=== PATIENT | female | born 1990 | race Hispanic/Latino ===

== ENCOUNTER 2018-05-16 07:34 | Outpatient (CLI) | payer OTHER | END 2018-05-16 07:35 | disposition home or self-care (01) | LOC: BICULT 07:34 | PROVIDERS: ATTEND Nurse Practitioner | DX: N63.0 Unspecified lump in unspecified breast (principal) ==

== ENCOUNTER 2018-12-03 09:34 | Inpatient (IN) | payer OTHER ==
[2018-12-03] MEDS: Lactated Ringer's 1,000 ML IV SCH ×2 (10:12→10:52)
[2018-12-03] MEDS ORDERED: Ondansetron PF 4 MG/2 ML Vial IVP PRN ×3 (10:26→19:54)
[2018-12-03] MEDS ORDERED: CEFAZOLIN/Water 2 GM/20 ML SYRINGE SLOW IVP SCH (10:26)
[2018-12-03] MEDS ORDERED: Bicitra 30 ML UDCUP PO SCH (10:30)
[2018-12-03 10:34] VITALS: BMI 37.9
[2018-12-03 10:38] LABS: Hemoglobin 13.6 g/dL (12.0-16.0); Mean Corpuscular HGB CONC 35.4 g/dL (32.0-36.0); Mean Corpuscular Hemoglobin 30.3 pg (27.0-31.0); Mean Corpuscular Volume 85.5 fL (78.0-98.0); Platelet Count 231 thou/uL (130-400); RBC Distribution Width 13.1 % (11.5-14.5); Red Blood Cell (RBC) Count 4.49 mill/uL (4.20-5.40); White Blood Cell (WBC) Count 8.4 thou/uL (4.8-10.8)
[2018-12-03] MEDS ORDERED: CEFAZOLIN 2 GM/50 ML-DEXTROSE 2 GM in Premix Bag 1 BAG IVPB SCH (10:45)
[2018-12-03 11:16] LABS: Hep B Surf Ag Non-Reactive S/CO (NonReactive); Syphilis Antibody Nonreactive (Nonreactive); Syphilis Antibody Index 0.03 S/CO (<1.00 Non-Reactive)
[2018-12-03] MEDS ORDERED: ePHEDrine/0.9% NaCl/PF SYRINGE 50 mg/10 ml ONE ×2 (12:11→15:12)
[2018-12-03] MEDS ORDERED: Morphine PF 1 MG/ML SYR ONE (12:11)
[2018-12-03] MEDS ORDERED: Ondansetron PF 4 MG/2 ML Vial ONE ×2 (12:11→15:12)
[2018-12-03] MEDS ORDERED: Oxytocin 10 UNITS/ML VIAL ONE ×2 (12:11→13:34)
[2018-12-03] MEDS ORDERED: Fentanyl 100 MCG/2 ML VIAL ONE (12:11)
[2018-12-03] MEDS ORDERED: Ketorolac Tromethamine 30 MG/ML VIAL ONE ×2 (12:11→15:12)
[2018-12-03] MEDS ORDERED: PHENYLEPHRINE-NS 100 MCG/ML 10 ML SYRINGE ONE ×2 (12:41→15:12)
[2018-12-03] MEDS ORDERED: Methylergonovine 0.2 MG/ML VIAL ONE (13:31)
[2018-12-03] MEDS ORDERED: Misoprostol 200 MCG TAB ONE ×3 (13:35→13:37)
[2018-12-03] MEDS ORDERED: Ibuprofen 800 MG TAB PO SCH (14:00)
[2018-12-03] MEDS ORDERED: Lanolin Ointment 7 GM TUBE TOP PRN (14:09)
[2018-12-03] MEDS ORDERED: Lactated Ringer's 1,000 ML IV SCH (14:09)
[2018-12-03] MEDS ORDERED: diphenhydrAMINE 25 MG CAP PO PRN (14:09)
[2018-12-03] MEDS ORDERED: Meperidine HCl/PF 25 MG/ML VIAL IM PRN (14:09)
[2018-12-03] MEDS ORDERED: Bisacodyl 10 MG SUPP PR PRN (14:09)
[2018-12-03] MEDS ORDERED: NS / Oxytocin 40 units/1000ml 1,000 ML IV SCH (14:09)
[2018-12-03] MEDS ORDERED: Methylergonovine 0.2 MG/ML VIAL IM SCH (15:15)
[2018-12-03] MEDS ORDERED: Misoprostol 200 MCG TAB PR SCH (15:15)
--- NOTE | 2018-12-03 17:46 | PDOC.OPDEL ---
OB Operative/Delivery Note Delivery Dr/Surgeon: Dr. Menjivar Assist: Dr. [id number] Pre-Delivery Diagnosis: scheduled section Procedure/Post Delivery Dx: primary low transverse CS Weeks gestation: 37 (2 days) Anesthesia: spinal - Findings A Sex: male - 1 min: 8 - 5 min: 9 B Sex: female - 1 min: 8 - 5 min: 9 - Additional Findings/Plan Placenta delivered: manual removal findings: low transverse hysterotomy without extension, normal uterus, normal tubes, normal ovaries Estimated blood loss: 1270 Compilations/Other Findings: Date of Procedure:12/03/2018 [employer] Professional Surgeon: Dr. Gualberto Peck- PGY-2 Attending Surgeon: Dr. Lex Menjivar Procedure: Primary low transverse caesarean section Preoperative Diagnosis: 1)Term intrauterine 2) Twin Postoperative Diagnosis: 1)same as above plus any other findings during surgery Anesthesia: spinal Indications: The patient is a 28 year old G3,P2 female at 37.2 weeks gestation who presents for a repeat scheduled . Procedure in Detail: After risks, benefits, and alternatives were explained to the patient, she gave informed consent. Pre-operative antibiotics included Cefazolin 2 gram IV. The patient was taken to the operating room and spinal anesthesia was initiated. She was placed in the supine position with a left tilt and prepped and draped in usual sterile fashion. A Pfannenstiel incision was made with a scalpel and carried down to the level of the fascia which was sharply nicked. The fascial cut was extended bilaterally with curved Duran sissors. The inferior and superior edges of the cut fascial edges were elevated with Ramesh clamps and the underlying rectus muscles were sharply and bluntly dissected free. The recti were divided digitally and retracted manually. The peritoneum was entered bluntly and retracted manually. Jacquelin retractor was placed in the abdomen.. Bladder flap was created with Metzenbaum scissors. A low transverse score was made with the scalpel and the uterus was entered in the midline with the scalpel. Clear fluid was seen. The hysterotomy was extended manually. A, Baby Boy, was noted to be in the breech position. Was easily delivered. Mouth and nares were bulb suctioned. Cord clamped and cut and grossly normal male was handed to waiting nurse. Infant B was noted in transverse position. Was brought vertex and delivered with fundal pressure in the usual fashion. Mouth and nares were bulb suctioned. Cord clamped and cut and grossly normal female was handed to waiting nurse. Cord blood was obtained for both babies. Placenta was manually extracted, found to be intact with 2 3 vessel cords. The jacquelin retractor was then removed . The uterus was externalized and the endometrium was curetted with a dry lap. The bladder blade was inserted and the uterus was closed with a running locking 0-vicryl suture followed by a running non-locking 0-vicryl imbricating suture. Following this hemostasis was noted. The abdomen was irrigated with saline and suctioned free of clots. The uterus was internalized and the hysterotomy was again noted to be hemostatic. The peritoneum was then closed with 3-0 vicryl in running non-locking fashion. The fascia was closed with a running non-locking 0-PDS suture. The subcutaneous tissue was irrigated and there were no bleeders. The subq was then approximated with 3-0 vicryl with 3 interuptted stitches. The skin was approximated with moose and a pressure dressing was placed. All counts were correct. The patient tolerated the procedure well. As fundal pressure was being applied to express clots there was heavy bleeding noted and uterus was then boggy. Pt was given shot of metergine and given 800mg of cytotec rectally. Hemostasis was noted and uterues was noted to be firm. Patient was taken to the recovery room in stable condition. EBL: 1270 Complications: None Specimens: Cord blood sent to lab for blood type Drains: Damon to gravity draining clear urine Post delivery plan: routine recovery
[2018-12-03] MEDS ORDERED: Naloxone HCl 0.4 mg/ml Vial IV PRN (19:54)
[2018-12-03] MEDS ORDERED: diphenhydrAMINE 50 MG/ML VIAL IVP PRN (19:54)
[2018-12-03] MEDS ORDERED: Promethazine HCl 25 MG/ML VIAL IM PRN (19:54)
[2018-12-03] MEDS ORDERED: Naloxone HCl 0.4 mg/ml Vial IVP PRN ×2 (19:54)
[2018-12-03] MEDS ORDERED: Eucerin (Mineral Oil/Petrolatum,White) 30 gm Jar TOP PRN (19:54)
[2018-12-03] MEDS ORDERED: Promethazine HCl 25 MG SUPP PR PRN (19:54)
[2018-12-03] MEDS ORDERED: Acetaminophen 1,000 MG in Premix Bag 1 BAG IVPB PRN (19:55)
[2018-12-03] MEDS ORDERED: Communication Order-Pharmacy FS SCH (20:00)
[2018-12-03] MEDS: Ferrous Sulfate 325 MG TAB PO SCH (22:40)
[2018-12-03] MEDS: Docusate Calcium (SURFAK) 240 MG CAP PO SCH (22:40)
[2018-12-03] MEDS ORDERED: Ketorolac Tromethamine 30 MG/ML VIAL IVP SCH (23:59)
[2018-12-04] MEDS: Ibuprofen 800 MG TAB PO SCH ×3 (05:16→21:43)
[2018-12-04 07:13] LABS: Hemoglobin 11.2 g/dL (12.0-16.0); Mean Corpuscular HGB CONC 33.2 g/dL (32.0-36.0); Mean Corpuscular Hemoglobin 29.4 pg (27.0-31.0); Mean Corpuscular Volume 88.4 fL (78.0-98.0); Mean Platelet Volume 6.8 fL (7.4-10.4); Platelet Count 211 thou/uL (130-400); RBC Distribution Width 13.1 % (11.5-14.5); Red Blood Cell (RBC) Count 3.82 mill/uL (4.20-5.40); White Blood Cell (WBC) Count 10.8 thou/uL (4.8-10.8)
[2018-12-04] MEDS ORDERED: Sodium Chloride 0.9% 10 ML ONE (07:55)
[2018-12-04] MEDS: Docusate Calcium (SURFAK) 240 MG CAP PO SCH ×2 (08:26→21:43)
[2018-12-04] MEDS: Simethicone Chewable 80 MG TAB PO PRN ×3 (08:26→18:03)
[2018-12-04] MEDS: Prenatal Vitamin 1 TAB PO SCH (08:26)
[2018-12-04] MEDS: Ferrous Sulfate 325 MG TAB PO SCH ×2 (08:27→21:45)
[2018-12-04] MEDS: HYDROcodone/Acetaminophen 5/325 mg Tablet PO PRN ×3 (11:48→21:43)
[2018-12-05] MEDS: Ibuprofen 800 MG TAB PO SCH ×3 (04:35→21:35)
[2018-12-05] MEDS: Simethicone Chewable 80 MG TAB PO PRN ×3 (04:35→20:15)
[2018-12-05] MEDS ORDERED: Ibuprofen 800 MG TAB PO SCH (06:00)
[2018-12-05] MEDS: Prenatal Vitamin 1 TAB PO SCH (08:52)
[2018-12-05] MEDS: Docusate Calcium (SURFAK) 240 MG CAP PO SCH ×2 (08:52→20:15)
[2018-12-05] MEDS: HYDROcodone/Acetaminophen 5/325 mg Tablet PO PRN ×3 (10:06→20:15)
[2018-12-05] MEDS: Ferrous Sulfate 325 MG TAB PO SCH ×2 (10:13→20:19)
[2018-12-06] MEDS: HYDROcodone/Acetaminophen 5/325 mg Tablet PO PRN ×3 (02:38→12:58)
[2018-12-06] MEDS: Ibuprofen 800 MG TAB PO SCH ×2 (04:50→12:58)
[2018-12-06] MEDS: Ferrous Sulfate 325 MG TAB PO SCH (07:19)
[2018-12-06] MEDS: Prenatal Vitamin 1 TAB PO SCH (08:17)
[2018-12-06] MEDS: Docusate Calcium (SURFAK) 240 MG CAP PO SCH (08:17)
[2018-12-06 08:44] VITALS: BP 128/80; TEMP 97.7
== END 2018-12-06 14:10 | disposition home or self-care (01) | DRG 788 ==
LOC: L&D 09:34 → 3SW 17:46
PROVIDERS: ADMIT Family Medicine; ATTEND Family Medicine
PROC: 10D00Z1 Extraction of Products of Conception, Low, Open Approach (ICD-10-PCS; principal; 2018-12-03)
DX: O32.1XX1 Maternal care for breech presentation, fetus 1 (principal); O32.2XX2 Maternal care for transverse and oblique lie, fetus 2; O30.043 Twin pregnancy, dichorionic/diamniotic, third trimester; Z3A.37 37 weeks gestation of pregnancy; Z37.2 Twins, both liveborn
CPT/HCPCS: 36415; 85027; 86780; 86850; 86900; 86901; 87340; 88307; J1885; J2210; J2274; J2405; J2590; J3010

== ENCOUNTER 2019-06-27 19:16 | Inpatient (IN) | payer OTHER, SELFPAY ==
[~2019-06-27 19:16] MED LIST: ISOVUE-370 76%-LOCM 1 ML ONE
[2019-06-27 19:46] LABS: #Basophils 0.1 thou/uL (0.0-0.2); #Eosinphils 0.5 thou/uL (0.0-0.7); #Lymphocytes 3.8 thou/uL (1.20-3.40); #Monocytes 0.7 thou/uL (0.11-0.59); #Neutrophils 6.7 thou/uL (1.40-6.50); %Basophils 0.6 % (0.0-1.0); %Lymphocytes 32.6 % (21.0-51.0); %Monocytes 5.8 % (0.0-10.0); %Neutrophils 57.1 % (42.0-75.0); Hemoglobin 13.9 g/dL (12.0-16.0); Mean Corpuscular HGB CONC 34.6 g/dL (32.0-36.0); Mean Corpuscular Hemoglobin 29.2 pg (27.0-31.0); Mean Corpuscular Volume 84.3 fL (78.0-98.0); Mean Platelet Volume 6.2 fL (7.4-10.4); Platelet Count 321 thou/uL (130-400); RBC Distribution Width 11.8 % (11.5-14.5); Red Blood Cell (RBC) Count 4.76 mill/uL (4.20-5.40); White Blood Cell (WBC) Count 11.7 thou/uL (4.8-10.8)
[2019-06-27] MEDS ORDERED: Ondansetron ODT 4 MG TAB ONE (19:56)
[2019-06-27 20:03] LABS: Bilirubin Negative (Negative); Blood, Urine 1+ (Negative); Clarity Clear (Clear); Glucose, Urine (Dipstick) Normal (Negative); Leukocyte 75 Leu/uL (Negative); Nitrite Negative (Negative); Protein, Urine (Dipstick) 20 mg/dL (Neg-Trace); Urobilinogen Normal mg/dL (Less than 2)
[2019-06-27 20:04] LABS: BHCG - Serum Negative (NEGATIVE); Pregs Control Background? CLEAR/WHITE (CLR/WHITE); Pregs Control Bar Appear? YES (CONTROL BAR)
[2019-06-27 20:05] LABS: Bacteria/HPF None Seen HPF (None Seen)
[2019-06-27 20:07] LABS: ALT (SGPT) 14 U/L (8-55); AST (SGOT) 19 U/L (5-34); Albumin 4.2 g/dL (3.5-5.0); Alkaline Phosphatase 99 U/L (40-150); Anion Gap 15 mmol/L (10-20); BUN (Urea Nitrogen) 9 mg/dL (7.0-18.7); Bilirubin, Total 0.4 mg/dL (0.2-1.2); Calc. Creatinine Clearance 0 mL/min (70-130); Calcium 9.2 mg/dL (7.8-10.44); Carbon Dioxide 20 mmol/L (22-29); Chloride 109 mmol/L (98-107); Estimated GFR-MDRD Greater than 90; Globulin 3.2 g/dL (2.4-3.5); Glucose 101 mg/dL (70-105); Lipase 15 U/L (8-78); Potassium 3.5 mmol/L (3.5-5.1); Protein, Total 7.4 g/dL (6.0-8.3); Sodium 140 mmol/L (136-145)
[2019-06-27] MEDS ORDERED: Morphine 4 MG/ML VIAL ONE ×2 (20:38→22:23)
[2019-06-27] MEDS ORDERED: Ondansetron PF 4 MG/2 ML Vial ONE (20:38)
--- NOTE | 2019-06-27 21:09 | CT ---
ABDOMEN AND PELVIC CT SCAN WITH IV CONTRAST: 06/27/19 HISTORY: Abdominal pain. FINDINGS: The lung white are clear. The visualized liver, gallbladder, common bile duct region, pancreas, sple en, adrenal glands are unremarkable. No renal calculus or acute obstruction. There is an umbilical hernia containing a small bowel loop with dilatation and distention of the small bowel loop within t he hernia as well as proximal small bowel loops dilatation, evidence for obstruction. There is very m inimal adjacent fat stranding. Normal appearing appendix. No abscess or significant abnormal fluid co llection. Uterus and adnexal regions and urinary bladder are unremarkable. IMPRESSION: Umbilical hernia containing an abnormally dilated loop of small bowel with proximal small bowel dilat ation and minimal adjacent fat stranding with somewhat decompressed distal small bowel containing betzy e minimal scattered small bowel gas distally. No evidence for other significant acute process. POS: DAINA
[2019-06-27] MEDS ORDERED: Morphine 2 MG/ML SYRINGE SLOW IVP PRN (23:03)
[2019-06-27] MEDS ORDERED: Morphine 4 MG/ML VIAL SLOW IVP PRN (23:03)
[2019-06-27] MEDS ORDERED: Ondansetron PF 4 MG/2 ML Vial IVP PRN (23:03)
[2019-06-27] MEDS ORDERED: CEFAZOLIN 2 GM in Premix Bag 1 BAG IVPB SCH (23:15)
[2019-06-28] MEDS: Sodium Chloride 0.9% 1,000 ML IV SCH ×4 (00:46→22:21)
[2019-06-28 01:11] VITALS: BMI 38.9
--- NOTE | 2019-06-28 02:10 | HP ---
CHIEF COMPLAINT: Painful umbilical mass. HISTORY OF PRESENT ILLNESS: The patient is a 29-year-old female, who has a 5-6 month history of umbilical hernia, usually very reducible. She says she was working out and it popped out and became extremely painful. She then developed nausea and vomiting, was then able to get it pushed back in. Last bowel movement was yesterday. PAST MEDICAL HISTORY: Obesity. PAST SURGICAL HISTORY: section. She has had her tubes removed. MEDICATIONS: No medications. ALLERGIES: NO KNOWN DRUG ALLERGIES. SOCIAL HISTORY: She is unemployed, no tobacco, social alcohol. FAMILY HISTORY: Noncontributory. PHYSICAL EXAMINATION: VITAL SIGNS: Afebrile, pulse 78, blood pressure 127/77. GENERAL: Obese female, lying still. HEENT: Unremarkable. LUNGS: Clear. HEART: Regular rate and rhythm. ABDOMEN: Obese, soft. She had a tender mass just above the umbilicus. I was able to get it reduced and the pain got better. EXTREMITIES: Unremarkable. LABORATORY DATA: White count 11.7, H and H are 13 and 40, platelet count 321. Electrolytes are okay. CT scan showed an incarcerated umbilical hernia with small bowel obstruction with small bowel protruding through this hernia. ASSESSMENT: Incarcerated umbilical hernia with obstruction, now reduced. PLAN: Laparoscopic ventral hernia repair with mesh. Job ID: [id number]
[2019-06-28] MEDS ORDERED: ceFAZolin Sodium (SDC) 2 GM/100 ML BAG ONE (08:30)
[2019-06-28] MEDS ORDERED: Bupivacaine/Epinephrine 0.25% 30 ML VIAL ONE (09:47)
[2019-06-28] MEDS ORDERED: Fentanyl 100 MCG/2 ML VIAL ONE ×2 (09:56→11:47)
[2019-06-28] MEDS ORDERED: PROPOFOL 40 ML ONE (10:12)
[2019-06-28] MEDS ORDERED: Ondansetron HCl/PF 4 MG/2 ML Vial IVP PRN (10:56)
[2019-06-28] MEDS ORDERED: Meperidine HCl/PF 25 MG/ML VIAL SLOW IVP PRN (10:56)
[2019-06-28] MEDS ORDERED: Promethazine HCl 25 MG/ML VIAL IM PRN ×2 (10:56→11:23)
[2019-06-28] MEDS ORDERED: Promethazine HCl 25 MG/ML VIAL SLOW IVP PRN (10:56)
[2019-06-28] MEDS ORDERED: hydrALAZINE 20 MG/ML VIAL SLOW IVP PRN (11:23)
[2019-06-28] MEDS ORDERED: Ondansetron PF 4 MG/2 ML Vial IVP PRN (11:23)
[2019-06-28] MEDS ORDERED: HYDROcodone/Acetaminophen 10/325 mg Tablet PO PRN ×2 (11:23)
[2019-06-28] MEDS ORDERED: Dextrose 50% Abboject 50 ML SYRINGE SLOW IVP PRN (11:23)
[2019-06-28] MEDS ORDERED: Dextrose 5% in Water 1,000 ML IV PRN (11:23)
[2019-06-28] MEDS ORDERED: Morphine 2 MG/ML SYRINGE SLOW IVP PRN (11:46)
[2019-06-28] MEDS: D5 1/2 NS w/20 mEq KCL 1,000 ML IV SCH ×2 (12:18→22:13)
[2019-06-28] MEDS: Piperacillin/Tazobactam 3.375 GM in Sodium Chloride 0.9% 100 ML IVPB SCH ×2 (12:45→18:07)
[2019-06-28] MEDS: Ketorolac Tromethamine 30 MG/ML VIAL IVP SCH ×2 (12:50→18:07)
[2019-06-28] MEDS: Famotidine 20 MG TAB PO SCH (22:13)
[2019-06-28] MEDS: Famotidine/PF 20 mg/2ml Vial SLOW IVP SCH (22:20)
--- NOTE | 2019-06-28 22:51 | OP ---
DATE OF PROCEDURE: 06/28/2019 PREOPERATIVE DIAGNOSES: Incarcerated ventral hernia with small bowel obstruction. PROCEDURE PERFORMED: Laparoscopic ventral hernia repair with mesh. INDICATIONS: A 29-year-old female, who presented with severe abdominal pain, nausea, and vomiting. CT scan showing an incarcerated ventral hernia with small bowel. This was able to be reduced last night. FINDINGS: A 2 cm defect, 6-inch ultralight Proceed mesh used with 0 V-Loc transverse closure of the fascia. DESCRIPTION OF PROCEDURE: After informed consent was obtained, the patient was taken to the operating room and given general endotracheal anesthesia. She was placed in supine position. Abdomen was prepped and draped in usual fashion. Local anesthesia infiltrated subcutaneously and deep. A 12 mm incision was performed in the right lateral abdomen. Veress needle inserted. Drop test performed. Pneumoperitoneum was created to a volume of 2 L of carbon dioxide. Utilizing a bladeless 12 mm trocar and 0-degree laparoscope, direct visual entry in the abdominal cavity was performed. Pneumoperitoneum was created to a pressure of 15 mmHg and two 5 mm ports were placed in the right lateral abdomen. The hernia was identified. It has had been reduced. The bowel was inspected. There was no evidence of ischemia. A laparoscopic transverse closure of the fascia was performed utilizing 0 V-Loc suture from left to right. Then, this needle was removed and a 6-inch Proceed ultralight mesh was used. The intraabdominal pressure was decreased to 10 mmHg pressure. The mesh was prepared by placing 0 Ethibond of alternating colors circumferentially in 4 quadrants. This was hydrated, rolled, and inserted intra-abdominally, then unrolled. Then, utilizing the GraNee needle, the sutures were individually grasped and brought up to optimally position the mesh. Then, the mesh was further secured to the anterior abdominal wall with the SecureStrap Tacker. Hemostasis assured. Trocars and retractors removed. The skin closed with interrupted 4-0 Rapide. Dermabond applied. The patient tolerated the procedure well, transferred to Recovery in good condition. Sponge and needle count verified correct x2. Job ID: [id number]
[2019-06-29] MEDS: Ketorolac Tromethamine 30 MG/ML VIAL IVP SCH ×2 (00:52→05:46)
[2019-06-29] MEDS: Piperacillin/Tazobactam 3.375 GM in Sodium Chloride 0.9% 100 ML IVPB SCH ×2 (00:52→05:46)
[2019-06-29 06:08] LABS: #Eosinphils 0.1 thou/uL (0.0-0.7); #Lymphocytes 1.8 thou/uL (1.20-3.40); #Monocytes 0.7 thou/uL (0.11-0.59); #Neutrophils 7.5 thou/uL (1.40-6.50); %Basophils 0.2 % (0.0-1.0); %Eosinophils 1.1 % (0.0-10.0); %Lymphocytes 17.6 % (21.0-51.0); %Neutrophils 74.2 % (42.0-75.0); Hemoglobin 12.6 g/dL (12.0-16.0); Mean Corpuscular HGB CONC 34.9 g/dL (32.0-36.0); Mean Corpuscular Hemoglobin 30.1 pg (27.0-31.0); Mean Corpuscular Volume 86.2 fL (78.0-98.0); Mean Platelet Volume 6.3 fL (7.4-10.4); Platelet Count 282 thou/uL (130-400); White Blood Cell (WBC) Count 10.1 thou/uL (4.8-10.8)
[2019-06-29] MEDS: Sodium Chloride 0.9% 1,000 ML IV SCH (06:23)
[2019-06-29 06:30] LABS: Anion Gap 9 mmol/L (10-20); BUN (Urea Nitrogen) 6 mg/dL (7.0-18.7); Calc. Creatinine Clearance 232 mL/min (70-130); Carbon Dioxide 25 mmol/L (22-29); Chloride 108 mmol/L (98-107); Estimated GFR-MDRD Greater than 90; Glucose 116 mg/dL (70-105); Potassium 3.7 mmol/L (3.5-5.1); Sodium 138 mmol/L (136-145)
[2019-06-29] MEDS: Famotidine 20 MG TAB PO SCH (08:54)
[2019-06-29] MEDS: Famotidine/PF 20 mg/2ml Vial SLOW IVP SCH (08:55)
[2019-06-29] MEDS ORDERED: Enoxaparin Sodium 40 MG/0.4 ML SYRINGE SC SCH (09:00)
[2019-06-29 09:40] VITALS: BP 132/85; TEMP 98.1
--- NOTE | 2019-06-29 10:09 | DIS ---
DATE OF ADMISSION: 06/27/2019 DATE OF DISCHARGE: 06/29/2019 DISCHARGE DIAGNOSIS: Incarcerated ventral hernia with small bowel obstruction. PROCEDURE DURING ADMISSION: Laparoscopic ventral hernia repair with mesh. HOSPITAL COURSE: The patient was admitted. Her hernia was reduced. She was taken to the operating room, where she underwent a laparoscopic ventral hernia repair with mesh. Postoperatively, she has done well. Her pain is controlled on p.o. medications. She is tolerating a diet. She is discharged home on hydrocodone and Zofran. She will follow up with me in 2 weeks. Job ID: [id number]
== END 2019-06-29 10:10 | disposition home or self-care (01) | DRG 355 ==
LOC: ERS 19:16 → SURG B 22:40
PROVIDERS: ADMIT Surgery; ATTEND Surgery
PROC: 0WUF4JZ Supplement Abdominal Wall with Synthetic Substitute, Percutaneous Endoscopic Approach (ICD-10-PCS; principal; 2019-06-28)
DX: K43.6 Other and unspecified ventral hernia with obstruction, without gangrene (principal)
CPT/HCPCS: 36415; 74177; 80048; 80053; 81003; 81015; 83690; 84703; 85025; 96374; 96375; 96376; J0131; J0690; J1650; J1885; J2270; J2405; J2543; J2704; J3010; J3490; Q0162